=== PATIENT | female | born 1970 | race Caucasian/White ===

== ENCOUNTER 2021-06-20 11:28 | Emergency (ER) | payer OTHER, SELFPAY ==
[2021-06-20 11:38] VITALS: BP 172/79; PULSE 62; RESP 16; TEMP 36.3; O2SAT 100
--- NOTE | 2021-06-20 12:09 | ED.UPPEXIN ---
HPI - Extremity Injury (Upper) General Chief Complaint: Extremity Injury, Upper Stated Complaint: Right Arm Pain Time Seen by Provider: 06/20/21 11:57 Source: patient and RN notes reviewed Mode of arrival: ambulatory Limitations: no limitations History of Present Illness HPI narrative: Patient presents today complaining of pain to her right upper arm. 2 days ago she moved her arm and felt a pop and the pain is primarily in the axilla and upper humerus area. Denies numbness or tingling. She currently rates her pain 5/10 and has been taking Aleve with mild relief. Pain increases with movement. complaint: injury to: right and arm Related Data Home Medications Medication Instructions Recorded Confirmed oxybutynin chloride 5 mg PO DAILY 06/20/21 06/20/21 Allergies Allergy/AdvReac Type Severity Reaction Status Date / Time No Known Allergies Allergy Verified 06/20/21 12:02 Review of Systems Review of Systems: CONSTITUTIONAL: Denies body aches, fever, chills, or sweats. EYES: Denies visual changes, redness, or discharge. ENT: Denies rhinorrhea, congestion, sore throat, or otalgia. CARDIOVASCULAR: Denies chest pain, palpitations, or edema. RESPIRATORY: Denies cough or dyspnea. GASTROINTESTINAL: Denies abdominal pain, nausea, vomiting, or diarrhea. GENITOURINARY: Denies dysuria or hematuria. SKIN: Denies rash, itching, or wounds. MUSCULOSKELETAL: Denies back pain,myalgia.+ Right upper arm pain NEUROLOGIC: Denies headache, numbness, tingling, or weakness. PSYCH: Denies depression or anxiety. PMFSH Past Medical History Medical History (Updated 06/22/21 @ 10:16 by Cindy Wing, [facility], ) Overactive bladder Surgical History Surgical History (Updated 06/22/21 @ 10:16 by Cindy Wing, [facility], ) H/O tubal ligation Comments At time of signature, I have reviewed and agree with nursing past medical, surgical, social and family history unless otherwise noted. Please see nursing chart for further information. There is no relevant family history pertinent to the presenting complaint Exam Narrative: GENERAL: Well-appearing, well-nourished, and in no acute distress. HEAD: Normocephalic, atraumatic. EYES: EOMI. No redness or drainage. Conjunctivae normal. ENT: Mucous membranes pink and moist. NECK: Normal AROM. CHEST: No respiratory distress. EXTREMITIES: Right arm: No bony tenderness about the shoulder. Patient does have soft tissue tenderness to the axilla area extending to the tricep area. No edema, erythema, or ecchymosis noted. Pain increases with movement of the shoulder. Distal sensation intact. Capillary refill normal. Radial pulse normal. Full range of motion of the elbow and wrist without pain. SKIN: Warm, dry, no rash. Capillary refill normal. Normal skin turgor. NEURO: No focal deficits. Alert and oriented x3. Gait steady. PSYCH: Normal affect. No signs of depression or anxiety. Course Vital Signs Vital signs: Vital Signs Temperature 97.4 F L 06/20/21 11:38 Pulse Rate 62 06/20/21 11:38 Respiratory Rate 16 06/20/21 11:38 Blood Pressure 172/79 H 06/20/21 11:38 Pulse Oximetry 100 06/20/21 11:38 Temperature 97.4 F L 06/20/21 11:38 Pulse Rate 62 06/20/21 11:38 Respiratory Rate 16 06/20/21 11:38 Blood Pressure 172/79 H 06/20/21 11:38 Pulse Oximetry 100 06/20/21 11:38 Reviewed. Pt has been instructed to follow up with her PCP regarding her elevated blood pressure today. MDM - Extremity Injury (Upper) Differential Diagnosis Differential diagnosis: Likely other (Rotator cuff tendinitis, rotator cuff tear, rotator cuff strain) Critical Care Time Critical Care Time Critical Care Time: No Discharge Plan Discharge Clinical Impression: Injury of right shoulder Patient Disposition: Home, Self-Care Condition: Stable Instructions: Rotator Cuff Injury (ED) Additional Instructions: Take the diclofenac for pain and inflammation. Follow-up
== END 2021-06-20 12:15 | disposition home or self-care (01) ==
PROVIDERS: Emergency Provider Nurse Practitioner
DX: S49.91XA Unspecified injury of right shoulder and upper arm, initial encounter (principal); X58.XXXA Exposure to other specified factors, initial encounter
CPT/HCPCS: 99203; G0463

== ENCOUNTER 2023-09-02 08:34 | Emergency (ER) | payer OTHER, SELFPAY ==
[2023-09-02 08:44] VITALS: BP 158/93; PULSE 127; RESP 20; TEMP 39.4; O2SAT 94
--- NOTE | 2023-09-02 09:06 | ED.GENADULT ---
HPI - General Adult General Chief complaint: Upper Respiratory Infection Stated complaint: Dizzy, Cough Source: patient, RN notes reviewed and old records reviewed Mode of arrival: ambulatory Limitations: no limitations History of Present Illness HPI narrative: 53 year old female presents to [facility] for c/o cough, congestion, sore throat that started 3 days ago. Pt not taking anything for symptoms. Pt with noted fever today in clinic. MD complaint: cough, congestion,sore throat Onset (ago): day(s) (3) Related Data Home Medications Medication Instructions Recorded Confirmed oxybutynin chloride 5 mg tablet 5 mg PO DAILY 06/20/21 06/20/21 Allergies Allergy/AdvReac Type Severity Reaction Status Date / Time No Known Allergies Allergy Verified 09/02/23 09:16 Review of Systems Constitutional: Constitutional: Reports as per HPI, Reports body ache(s), Denies chills, Denies fatigue, Reports fever(s) and Denies headache(s) Eyes: Eyes: Reports no additional eye complaints and Denies blurry vision ENT: Reports as per HPI, Denies vertigo, Reports dizziness, Denies ear discharge, Denies otalgia, Denies facial pain, Reports headache(s), Reports nasal congestion, Denies nasal discharge, Reports sinus pain, Denies sinus pressure and Reports sore throat Cardiovascular: Cardiovascular: Reports no additional cardiovascular complaints, Denies chest pain, Denies chest pain at rest, Denies rapid heart rate and Denies dyspnea Respiratory: Respiratory: Reports as per HPI, Reports chest congestion, Reports cough, Denies pain on inspiration, Denies pain with cough and Denies dyspnea Gastrointestinal: Gastrointestinal: Denies abdominal pain, Denies diarrhea, Denies nausea and Denies vomiting Integumentary/Breasts: Skin/Breast: Denies rash Neurologic: Reports system reviewed and no additional complaints, except as documented, Denies vertigo, Denies dizziness and Denies headache(s) Endocrine: Endocrine: Denies fatigue PMFSH Past Medical History Medical History Overactive bladder Surgical History Surgical History H/O tubal ligation Comments At the time of my signature, I reviewed and agree with the nursing past medical, surgical, social, and family history. There is no relevant family history pertinent to the patient complaint. Exam Const: General: cooperative, healthy appearing, no acute distress and well nourished Nutritional Appearance: well nourished Orientation/consciousness: patient oriented x3 Limitations: no limitations HENMT: Head: normal to inspection and normocephalic Ears: external ears normal, TM's normal bilaterally, mastoids normal and Abnormal EAC present Face/Nose/Sinus: normal facial exam Face and sinus: normal facial exam Mouth: Yes Normal oral and palatal mucosa present, Yes oropharynx normal and Yes moist mucous membranes Throat: tonsils normal, uvula midline, posterior oropharynx abnormal erythema and no uvular edema Eyes: General: appearance normal, both eyes and all related structures Sclera: sclerae normal Pupils: Equal, round and reactive pupils present Resp: Effort & Inspection: normal respiratory effort, able to speak in complete sentences, no audible wheezes, no cough, no respiratory distress and no retractions Auscultation: clear to auscultation bilaterally, no crackles, no rales, no rhonchi and no wheezes Cardio: Rate: regular rate Rhythm: regular rhythm Skin: General skin exam: normal color and no rashes or lesions noted Neuro: General: patient oriented x3 Cranial nerves: Yes Equal, round and reactive pupils present Psych: Appearance: grossly normal Mental Status: mental status grossly normal Speech and movement: Normal speech and movement present Affect: normal affect Course Course Emergency Course: Patient is aware of diagnosis, understands and agrees to treatment tia
== END 2023-09-02 09:24 | disposition home or self-care (01) ==
PROVIDERS: Emergency Provider Registered Nurse
DX: J10.1 Influenza due to other identified influenza virus with other respiratory manifestations (principal); Z20.822 Contact with and (suspected) exposure to COVID-19
CPT/HCPCS: 87081; 87426; 87804; 87880; 99213; C9803; G0463

== ENCOUNTER 2023-12-21 18:55 | Emergency (ER) | payer OTHER, SELFPAY ==
[2023-12-21 18:58] VITALS: BP 174/81; PULSE 60; RESP 20; TEMP 36.4; O2SAT 98
--- NOTE | 2023-12-21 19:34 | ED.GENADULT ---
HPI - General Adult General Stated complaint: Poss UTI Source: patient Mode of arrival: ambulatory Limitations: no limitations History of Present Illness HPI narrative: Patient presents for evaluation of urinary symptoms for last 2 days. Symptoms include urinary frequency, urgency, incomplete emptying, dysuria, suprapubic pressure. No fever, chills, nausea, vomiting, low back pain. She tried taking Azo for her symptoms but symptoms persist. She has a history of overactive bladder. Related Data Home Medications Medication Instructions Recorded Confirmed oxybutynin chloride 5 mg tablet 5 mg PO DAILY 06/20/21 12/21/23 Allergies Allergy/AdvReac Type Severity Reaction Status Date / Time No Known Allergies Allergy Verified 12/21/23 19:06 Review of Systems Review of Systems: CONSTITUTIONAL: Denies fever, chills, or sweats. EYES: Denies visual changes, redness, or discharge. ENT: Denies rhinorrhea, congestion, sore throat, or otalgia. CARDIOVASCULAR: Denies chest pain, palpitations, or edema. RESPIRATORY: Denies cough or dyspnea. GASTROINTESTINAL: Denies abdominal pain, nausea, vomiting, or diarrhea. GENITOURINARY: Reports urinary frequency, urgency, incomplete emptying, dysuria and suprapubic pressure. SKIN: Denies rash or itching. MUSCULOSKELETAL: Denies back pain, joint pain, or myalgia. NEUROLOGIC: Denies headache, numbness, dizziness, or weakness. PSYCHIATRIC: Denies anxiety or depression. PMFSH Past Medical History Medical History Overactive bladder Surgical History Surgical History H/O tubal ligation Family History Family History Mother Family history non-contributory Social History Social History Smoking status: Former smoker Substance use: never Gender identity (if verbalized by the patient): Female Spiritual care concerns: No Exam Narrative: GENERAL: Well-appearing, well-nourished, and in no acute distress. HEAD: Normocephalic, atraumatic. EYES: PERRLA and EOMI. ENT: Nares clear, no rhinorrhea or epistaxis. Mucous membranes moist. Oropharynx without tonsillar hypertrophy exudate or other lesions. Bilateral TMs pearly matute nonbulging NECK: Supple. No adenopathy or masses. No carotid bruits or JVD CHEST: Clear to auscultation. No respiratory distress. No wheezes rales or rhonchi HEART: Regular rate and rhythm. No murmur heard. Normal peripheral pulses. ABDOMEN: Soft, nontender, nondistended, normal active bowel sounds. EXTREMITIES: Normal range of motion. No edema. SKIN: Warm, dry, no rash. NEURO: No focal deficits. Alert and oriented x3. PSYCH: Normal mood and affect. Course Course Emergency Course: This is a 53-year-old female who presented for evaluation of urinary symptoms. Urine here is nitrite positive. Will send urine for culture. Start macrobid. Increase hydration. Pyridium for dysuria. Follow up with PCP. Go to the ER for worsening symptoms. Pt in agreement with plan of care. Level of Care: Express Care Visit Vital Signs Vital signs: Vital Signs Temperature 36.4 C 12/21/23 18:58 Pulse Rate 60 12/21/23 18:58 Respiratory Rate 20 12/21/23 18:58 Blood Pressure 174/81 H 12/21/23 18:58 Pulse Oximetry 98 12/21/23 18:58 Oxygen Delivery Room Air 12/21/23 18:58 Temperature 36.4 C 12/21/23 18:58 Pulse Rate 60 12/21/23 18:58 Respiratory Rate 20 12/21/23 18:58 Blood Pressure 174/81 H 12/21/23 18:58 Pulse Oximetry 98 12/21/23 18:58 Oxygen Delivery Room Air 12/21/23 18:58 Medical Decision Making Vital Signs Vital Signs: Vital Signs Temperature 36.4 C 12/21/23 18:58 Pulse Rate 60 12/21/23 18:58 Respiratory Rate 20 12/21/23 18:58 Blood Pressure 174/81 H 04
== END 2023-12-21 19:20 | disposition home or self-care (01) ==
PROVIDERS: Emergency Provider Nurse Practitioner
DX: N39.0 Urinary tract infection, site not specified (principal); B96.20 Unspecified Escherichia coli [E. coli] as the cause of diseases classified elsewhere; Z87.891 Personal history of nicotine dependence; N32.81 Overactive bladder
CPT/HCPCS: 81003; 87077; 87086; 87186; 99213; G0463

== ENCOUNTER 2024-04-13 10:01 | Emergency (ER) | payer OTHER, SELFPAY ==
[2024-04-13 10:06] VITALS: BP 188/83; PULSE 64; RESP 20; TEMP 36.9; O2SAT 97
--- NOTE | 2024-04-13 10:09 | ED.GENADULT ---
HPI - General Adult General Chief complaint: Urogenital-Female Stated complaint: Urianry Problem Time Seen by Provider: 04/13/24 10:09 Source: patient, RN notes reviewed and old records reviewed Mode of arrival: ambulatory Limitations: no limitations History of Present Illness HPI narrative: 53-year-old female to Express Care for complaint urinary dribbling, frequency, retention, dysuria for 1 week. Patient states that symptoms were initially intermittent and are now more frequent and increased. Patient denies abdominal pain, back pain, fever, nausea, vomiting, bowel changes, allergies. Patient has not attempted to treat at home. Patient reports history of chronic urinary tract infections with most recent being in July of 2023. Patient able to tolerate fluids by mouth. Respirations even and nonlabored. Patient in no acute distress. Related Data Home Medications Medication Instructions Recorded Confirmed oxybutynin chloride 5 mg tablet 5 mg PO DAILY 06/20/21 04/13/24 Allergies Allergy/AdvReac Type Severity Reaction Status Date / Time No Known Allergies Allergy Verified 04/13/24 10:09 Review of Systems Review of Systems: All systems reviewed & are unremarkable except as noted in HPI and below Constitutional: Constitutional: Reports no additional constitutional complaints Eyes: Eyes: Reports no additional eye complaints ENT: Reports system reviewed and no additional complaints, except as documented Cardiovascular: Cardiovascular: Reports no additional cardiovascular complaints, Denies chest pain and Denies dyspnea Respiratory: Respiratory: Reports no additional respiratory complaints, Denies cough and Denies dyspnea Gastrointestinal: Gastrointestinal: Reports as per HPI, Denies abdominal pain, Denies diarrhea, Denies nausea and Denies vomiting Genitourinary: Genitourinary: Reports as per HPI, Denies hematuria, Reports urinary frequency, Reports post void dribbling, Reports nocturia, Denies genital pruritis, Reports dysuria, Denies pelvic pain, Denies flank pain, Reports urinary incontinence, Reports urinary hesitancy, Reports urinary urgency, Denies vaginal discharge and Denies vaginal odor Musculoskeletal: Musculoskeletal: Reports no additional musculoskeletal complaints Neurologic: Reports system reviewed and no additional complaints, except as documented Psychiatric: Psychiatric: Reports no additional psychiatric complaints PMFSH Past Medical History Medical History Overactive bladder Surgical History Surgical History H/O tubal ligation Family History Family History Mother Family history non-contributory Social History Social History Smoking status: Former smoker Substance use: never Gender identity (if verbalized by the patient): Female Spiritual care concerns: No Comments At the time of my signature, I reviewed and agree with the nursing past medical, surgical, social, and family history. There is no relevant family history pertinent to the patient complaint. Exam Const: General: cooperative, healthy appearing, comfortable, no acute distress, alert and well nourished Nutritional Appearance: well nourished Orientation/consciousness: patient oriented x3 Limitations: no limitations HENMT: Head: normal to inspection Ears: external ears normal Face/Nose/Sinus: Normal external nose present, Normal nares present, normal facial exam, No erythema and No edema Face and sinus: normal facial exam, no erythema and no edema Mouth: Yes Normal oral and palatal mucosa present Eyes: General: appearance normal, both eyes and all related structures Neck: Neck: normal visual inspection, full ROM and no meningeal signs Lymphatic: no lymphadenopathy note
[2024-04-13 10:17] VITALS: BP 188/83; PULSE 64; RESP 20; TEMP 36.9; O2SAT 97
[2024-04-13 10:41] LABS: EDUAAPPEAR Cloudy; EDUABILI Negative; EDUABLOOD Trace; EDUACOLOR1 Yellow; EDUAGLUCOSE Negative; EDUAKETONE Negative; EDUALEUKO 1+; EDUANITRATE Negative; EDUAPH 6.5; EDUAPROTEIN 1+; EDUASPGRAVITY 1.025; EDUAUROBILI 0.2
[2024-04-13 10:45] VITALS: BP 160/80
== END 2024-04-13 10:45 | disposition home or self-care (01) ==
PROVIDERS: Emergency Provider Nurse Practitioner Family
DX: N39.0 Urinary tract infection, site not specified (principal); Z87.891 Personal history of nicotine dependence; N32.81 Overactive bladder
CPT/HCPCS: 81003; 87086; 87088; 99213; G0463

== ENCOUNTER 2025-01-22 08:57 | Emergency (ER) | payer OTHER, SELFPAY ==
--- OUTSIDE RECORDS SUMMARY | 2025-01-22 09:01 | XMS_ITS | Clinical Summary ---
Author Organization [facility] Address [address] [place] [id number] Care Team Providers Care Cra Name Role Phone Unavailable Primary Care Provider Unavailabl e Social History Tobacco Use Types Packs/Day Years Used Date Smoking Tobacco: Never Assessed Comments Unknown Sex and Gender Information Value Date Recorded Sex Assigned at Not on file Legal Sex Female 7:49 PM CDT Gender Identity Not on file Sexual Orientation Not on file Plan of Treatment Health Maintenance Due Date Last Done Comments Cervical Cancer Screening Pa p Smear (Age 30 to 64) Every 3 Years 1970 Colorectal Cancer Screening Colonoscopy (10 Years) 1970 Annual Physical 1973 Hepatitis C 1988 DTaP, Tdap and Td Vaccines ( 1 - Tdap) 1989 Hepatitis B Vaccines (1 of 3 - 19+ 3-dose series) 1989 Cervical Cancer Screening Pa p with HPV Testing (Age 30 to 64) Every 5 Years 2000 Cervical Cancer Screening with HPV 2000 Mammogram Screening 2010 Pneumococcal Vaccine: 50+ Ye ars (1 of 1 - PCV) 2020 Zoster Vaccines (1 of 2) 2020 COVID-19 Vaccine ( - 2023-2 5 season) 2024 Meningococcal B Vaccine Aged Out No l onger eligible based on patient's age to complete this topic Meningococcal Vaccine Aged Out No christie dieudonne eligible based on patient's age to complete this topic RSV Immunizations Under 20 Months Aged Out No longer eligible based on patient's age to complete this topic
--- OUTSIDE RECORDS SUMMARY | 2025-01-22 09:01 | XMS_ITS | Referral Summary ---
Author Organization [facility] Address [address] [place] [address] Care Team Providers Care Call Center Recruiter Name Role Phone No, Physician Primary Care Provider [phone] Miscellaneous, Not In File Unavailable Unava Don Pro MD Unavailable [phone] Encounters Date Type Department Care Team Description 11/17/[address] [facility] [address] [place] [id number] Janneth Vela 11/13/2024 11:20 AM [employer] WORK[employer] Office Visit [facility] [id number] [place] [address] Medical Office Building [address] [place] [address] Paulina Barbosa, ABEL Mixed incontinence urge and stress (Primary Dx); OAB (overactive bladder) 11/09/2024 Orders Only [facility] [address] [place] [id number] Paulina Barbosa, ABEL 10/28/[address] [facility] [address] [place] [id number] Janneth Vela from Last 3 Months Allergies No known active allergies Medications acetaminophen (TYLENOL) 500 mg tablet Take 1,000 mg by mouth every 6 (six) hours as needed for pain Active cyanocobalamin (Vitamin B-12) 1,000 mcg sublingual tablet Take 1,000 mcg by mouth daily Active oxyBUTYnin (DITROPAN) 5 mg tabletIndication s:OAB (overactive bladder) Take 1 tablet (5 mg total) by mouth 2 (two) times a day 180 tablet 3 11/13/2024 Active Active Problems Problem Noted Date Diagnosed Date History of biliary duct stent placement 08/03/20 Overview (08/03/2022): Added automatically from request for surgery [id number] GI bleed 07/25/2022 Acute blood loss anemia 07/25/2022 Thrombocytopenia 07/25/2022 S/P cholecystectomy 07/23/2022 Kidney lesion 07/23/2022 Abdominal pain 07/22/2022 Elevated transaminase level 07/22/2022 Overview (07/24/2022): Added automatically from request for surgery [id number] Choledocholithiasis 07/22/2022 Overview (07/24/2022): Added automatically from request for surgery [id number] Calculus of gallbladder and bile duct without cholecystitis or obstruction 06/25/2022 Assessment & Plan (07/12/2022 9:19 AM CDT): Diet as tolerated. Okay to return to work with light duty. No heavy lifting greater than 20 lb for 4 weeks. No submerging incisions for 4 weeks. Please call for any further questions or concerns. Assessment & Plan (06/25/2022 12:52 PM CDT): Abnormal imaging with one known episode with typical symptoms. Surgical vs non-surgical therapy was discussed. The procedure along with the risks, benefits, and post operative period were discussed with the patient and her significant other. Educational packets were also provided to the patient for further reading. Patient will let us know which treatment she would like to pursue. OAB (overactive bladder) 11/10/2021 Hemorrhage following endosco pic retrograde cholangiopancreatography (ERCP) Acute blood loss anemia (ABLA) Social History Tobacco Use Types Packs/Day Years Used Date Smoking Tobacco: Former Smokeless Tobacco: Never Tobacco Cessation:Counseling Given: Not Answered Alcohol Use Standard Drinks/Week Comments No 0 (1 standard drink = 0.6 oz pur e alcohol) AUDIT-C Answer Date Recorded Q1: How often do you have a drink containing alcohol? Never 08/24/2022 Q2: How many drinks containi ng alcohol do you have on a typical day when you are drinking? Patient does not drink Q3: How often do you have si x or more drinks on one occasion? Never 08/24/2022 Comments No Sex and Gender Information Value Date Recorded Sex Assigned at Not on file Legal Sex Female 7:28 PM [employer] Gender Identity Not on file Sexual Orientation Not on file Last Filed Vital Signs Vital Sign Reading Time Taken Comments Blood Pressure 183/96 08/27/2022 10:22 AM [employer] WORK[employer] Pulse 65 08/27/2022 10:22 AM [employer] WORK[employer] Temperature 36.7 C (98 F) 11/13/2023 10:50 AM [employer] WORKER Respiratory Rate 16 08/27/2022 10:22 AM [employer]CE D[employer] WORKER Oxygen Saturation 100% 08/27/2022 10:22 AM [employer] WORKER Inhaled Oxygen Concentration - - Weight 69.4 kg (153 lb) 08/27/2022 8:03 AM [employer] WORK[employer] Height 144.8 cm (4' 9 ) 08/27/2022 8:03 AM [employer] WORKER Body Mass Index 33.11 08/27/2022 8:03 AM [employer]CE [employer] WORKER Plan of Treatment Not on file Medical Devices Implanted Type Area Savings Counselor Device Identifier Shelf Expiration Date Model / Serial / Lot [employer] Symmetry Vesolock Large Clip Internal [id number] - Sn/A - [id number] Implanted:Qty: 1 on 07/02/2022 by Serge Andrade MD at [facility] N/A: Abdomen [employer] [id number] / N/A / Explanted Type Area Savings Counselor Device Identifier Shelf Expiration Date Model / Serial / Lot [employer] Advanix; Naviflex Od10 Fr L5 Cm Preload; Radiopaque; Rapid Exchan [id number] - [id number] Implanted:Qty: 1 on 07/24/2022 by Yissel Nicole MD at [facility] Explanted:Qty: 1 on 07/26/2022 by Don Reyna MD at [facility] Stent [employer] 02/14/2023 [id number] / / [id number] Conmed Luis Viabil 8mm X 6cm Longwire [id number] - [id number] - [id number] Implanted:Qty: 1 on 07/26/2022 by Don Reyna MD at [facility] Explanted:Qty: 1 on 08/27/2022 by Don Reyna MD at [facility] Stent N/A: Bile Duct Con[employer] Luis 12/11/2023 [id number] / [id number] / Procedures Procedure Name Priority Date/Time Associated Diagnosis Comments MEASURE POST VOID RESIDUAL Routine 11/13/2024 11:19 AM [employer] WORKER OAB (overactive bladder) from Last 3 Months Results * Measure post void residual (11/13/2024 11:19 AM P[employer]CE D[employer] WORKER) Maria Teresa Manasa Argueta - 11/13/2024 11:19 AM [employer] WORKER Measurement of post-voiding residual urine and/or bladder capacity by ultrasound, non-imaging. PVR = 70mL us Paulina Barbosa [employer] [facility] Final Res ult from Last 3 Months Insurance [facility] Advance Directives For more information, please contact: [phone] * Full Code (Latest Code Status on File) Date Activated Date Inactivated Comments 08/27/2022 7:58 AM 08/27/2022 2:49 PM * Full Code Date Activated Date Inactivated Comments 07/25/2022 10:56 PM 07/27/2022 6:33 PM * Full Code Date Activated Date Inactivated Comments 07/24/2022 2:54 PM 07/25/2022 9:40 PM * Full Code Date Activated Date Inactivated Comments 07/23/2022 8:59 AM 07/24/2022 2:54 PM Care Teams Call Center Recruiter Relationship Specialty Start Date End Date No, Physician PCP - General 07/22/22 Miscellaneous, Not In File 07/27/22 Don Reyna MD [address] [place] [address] Consulting Physician Gastroenterology 07/27/22
--- OUTSIDE RECORDS SUMMARY | 2025-01-22 09:01 | XMS_ITS | Clinical Summary ---
Author Organization [facility] Address [address] [place] [address] Care Team Providers Care Certified Ophthalmic Medical Technician Name Role Phone No, Physician Primary Care Provider [phone] Miscellaneous, Not In File Unavailable Unava Don Pro MD Unavailable [phone] Allergies No known active allergies Medications acetaminophen [...] (08/03/2022): Added automatically from request for surgery [id number] GI bleed 07/25/2022 Acute blood loss anemia 07/25/2022 Thrombocytopenia 07/25/2022 S/P cholecystectomy 07/23/2022 Kidney lesion 07/23/2022 Abdominal pain 07/22/2022 Elevated transaminase level 07/22/2022 Overview (07/24/2022): Added automatically from request for surgery [id number] Choledocholithiasis 07/22/2022 Overview (07/24/2022): Added automatically from request for surgery [id number] Calculus of gallbladder and bile duct without [...] cholangiopancreatography (ERCP) Acute blood loss anemia (ABLA) Encounters Date Type Department Care Team Description 11/17/2024 Documentation [facility] [address] [place] [id number] Janneth Vela 11/13/2024 11:20 AM STORE ASSISTANT Office Visit [facility]) - [facility] U[facility] [id number] [place] [address] Medical Office Building [address] [place] [id number] Paulina Barbosa, ABEL Mixed incontinence urge and stress (Primary Dx); OAB (overactive bladder) 11/09/2024 Orders Only [facility] [address] [place] [id number] Paulina Barbosa, WARES SORTER 10/28/2024 Documentation [facility] [address] [place] [id number] Janneth Vela from Last 3 Months Surgical History Surgery Date Site/Laterality Comments HEART SURGERY repair hole in the heart TUBAL LIGATION Medical History Medical History Date Comments Arthritis Seizures (HCC) as a child Family History Medical History Relation Name Comments No Known Problems Brother Lymphoma Father Dementia Mother No Known Problems Sister Relation Name Status Comments Brother Alive Father Mother Sister Alive Social History Tobacco Use Types Packs/Day Years [...] on file Legal Sex Female 7:28 PM STORE ASSISTANT Gender Identity Not on file Sexual Orientation Not on file Obstetrics History Last Filed Vital Signs Vital Sign Reading Time Taken Comments Blood Pressure 183/96 08/27/2022 10:22 AM STORE ASSISTANT Pulse 65 08/27/2022 10:22 AM STORE ASSISTANT Temperature 36.7 C (98 F) 11/13/2023 10:50 AM STORE ASSISTANT Respiratory Rate 16 08/27/2022 10:22 AM STORE ASSISTANT Oxygen Saturation 100% 08/27/2022 10:22 AM STORE ASSISTANT Inhaled Oxygen Concentration - - Weight 69.4 kg (153 lb) 08/27/2022 8:03 AM STORE ASSISTANT Height 144.8 cm (4' 9 ) 08/27/2022 8:03 AM STORE ASSISTANT Body Mass Index 33.11 08/27/2022 8:03 AM STORE ASSISTANT Plan of Treatment Health Maintenance Due Date Last Done Comments Breast Cancer Screening-Mammogram 1970 Cervical Cancer Screening 1970 Colon Cancer Screening-Colonoscopy 1970 Depression Screening 1970 Hepatitis C Screening 1970 DTaP/Tdap/Td Vaccine (1 - Tdap) 1981 Hepatitis B Screening 1988 Regular Well Visit/Exam 18-64 1988 Zoster Vaccine (1 of 2) 2020 Influenza Vaccine (Season Ended) 2025 Pneumococcal vaccine <65 Aged Out No longer eligible based on patient's age to complete this topic Medical Devices Implanted Type Area Property Analyst Device Identifier Shelf Expiration Date Model / Serial / Lot [employer] Symmetry Vesolock Large Clip Internal [id number] - Sn/A - [id number] Implanted:Qty: 1 on 07/02/2022 by Serge Andrade MD at [facility] N/A: Abdomen [employer] [id number] / N/A / Explanted Type Area Property Analyst Device Identifier Shelf Expiration Date Model / Serial / Lot [employer] Advanix; Naviflex Od10 Fr L5 Cm Preload; Radiopaque; Rapid Exchan [id number] - [id number] Implanted:Qty: 1 on 07/24/2022 by Yissel Nicole MD at [facility] Explanted:Qty: 1 on 07/26/2022 by Don Reyna MD at [facility] Stent [employer] 02/14/2023 [id number] / / [id number] Conmed Luis Viabil 8mm X 6cm Longwire [id number] - [id number] - [id number] Implanted:Qty: 1 on 07/26/2022 by Don Reyna MD at [facility] Explanted:Qty: 1 on 08/27/2022 by Don Reyna MD at [facility] Stent N/A: Bile Duct Conmed Luis 12/11/2023 [id number] / [id number] / Procedures Procedure Name Priority Date/Time Associated Diagnosis Comments MEASURE POST VOID RESIDUAL Routine 11/13/2024 11:19 AM STORE ASSISTANT OAB (overactive bladder) from Last 3 Months Results * Measure post void residual (11/13/2024 11:19 AM STORE ASSISTANT) Maria Teresa Manasa Argueta - 11/13/2024 11:19 AM STORE ASSISTANT Measurement of post-voiding residual urine and/or bladder capacity by ultrasound, non-imaging. PVR = 70mL us Paulina Barbosa WARES SORTER NURSING ASSESSMENTS Final Res ult from Last 3 Months Insurance [facility] Advance Directives For more information, please contact: [phone] * Full Code (Latest Code Status on File) Date Activated Date Inactivated Comments 08/27/2022 7:58 AM 08/27/2022 2:49 PM * Full Code Date Activated Date Inactivated Comments 07/25/2022 10:56 PM 07/27/2022 6:33 PM * Full Code Date Activated Date Inactivated Comments 07/24/2022 2:54 PM 07/25/2022 9:40 PM * Full Code Date Activated Date Inactivated Comments 07/23/2022 8:59 AM 07/24/2022 2:54 PM Care Teams Certified Ophthalmic Medical Technician Relationship Specialty Start Date End Date No, Physician PCP - General 07/22/22 Miscellaneous, Not In File 07/27/22 Don Reyna MD [address] [place] [address] Consulting Physician Gastroenterology 07/27/22
[2025-01-22 09:02] VITALS: BP 177/95; PULSE 94; RESP 18; TEMP 37.1; O2SAT 96
[2025-01-22 09:24] LABS: EDCOVIDSCREEN Positive (Negative); EDINFLUASCREEN Negative (Negative); EDINFLUBSCREEN Negative (Negative)
--- NOTE | 2025-01-22 09:24 | ED.URI ---
HPI - URI/Sore Throat General Chief Complaint: Upper Respiratory Infection Stated Complaint: runny nose/congestion Time Seen by Provider: 01/22/25 09:25 Source: patient and RN notes reviewed Mode of arrival: ambulatory Limitations: no limitations History of Present Illness HPI Narrative: 54-year-old female presents with concern for 1-2 days of headache, body aches, nasal congestion, cough, sweats. Reports she has started taking Excedrin relief. MD elicited complaint: cough Related Data Home Medications ?Medication ?Instructions ?Recorded ?Confirmed ?Last Taken ?Type oxybutynin chloride 5 mg tablet 5 mg PO DAILY 06/20/21 04/13/24 Unknown History Allergies Allergy/AdvReac Type Severity Reaction Status Date / Time No Known Allergies Allergy Verified 01/22/25 09:11 Review of Systems Review of Systems: CONSTITUTIONAL: Reports malaise, sweats EYES: Denies visual changes, redness, or discharge. ENT: Reports rhinorrhea, congestion CARDIOVASCULAR: Denies chest pain, palpitations, or edema. RESPIRATORY: Reports cough. Denies dyspnea. GASTROINTESTINAL: Denies abdominal pain, nausea, vomiting, diarrhea SKIN: Denies rash or itching. MUSCULOSKELETAL: Reports myalgia. NEUROLOGIC: Reports headache. All systems reviewed & are unremarkable except as noted in HPI and below PMFSH Past Medical History Medical History Overactive bladder Surgical History Surgical History H/O tubal ligation Family History Family History Mother Family history non-contributory Social History Social History Smoking status: Former smoker Substance use: never Gender identity (if verbalized by the patient): Female Spiritual care concerns: No Comments At time of signature, agree with nursing past medical, surgical, social and family history. There is no relevant family history pertinent to the presenting complaint Exam Narrative: GENERAL: Well-appearing, well-nourished, and in no acute distress. HEAD: Normocephalic EYES: PERRLA, conjunctivae clear ENT: Nares clear. Mucous membranes moist. TM pearly matute with sharp light reflex bilaterally; no tragal tenderness. Oropharynx not erythematous without lesions. Tonsils not enlarged and without exudate, no drooling, no hoarseness, no trismus, uvula midline. NECK: Supple. No lymphadenopathy CHEST: Clear to auscultation, breath sounds equal. No wheezing, rhonchi, rales, or stridor. No respiratory distress, speaks in full sentences. HEART: Regular rate and rhythm. No murmur heard. SKIN: Warm, dry, no rash. NEURO: Alert and oriented x3. PSYCH: Normal mood and affect Course Course Emergency Course: Patient is aware of diagnosis, understands and agrees to treatment plan. Anticipatory guidance given. Patient agrees to follow-up as directed and is aware of reasons to seek care at the emergency department. Portions of this record may have been created with voice recognition software Level of Care: Express Care Visit Vital Signs Vital signs: Vital Signs Temperature 98.7 F 01/22/25 09:02 Pulse Rate 94 01/22/25 09:02 Respiratory Rate 18 01/22/25 09:02 Blood Pressure 177/95 H 01/22/25 09:02 Pulse Oximetry 96 01/22/25 09:02 Oxygen Delivery Room Air 01/22/25 09:02 Temperature 98.7 F 01/22/25 09:02 Pulse Rate 94 01/22/25 09:02 Respiratory Rate 18 01/22/25 09:02 Blood Pressure 177/95 H 01/22/25 09:02 Pulse Oximetry 96 01/22/25 09:02 Oxygen Delivery Room Air 01/22/25 09:02 Reviewed. MDM - URI/Sore Throat MDM Narrative Medical decision making narrative: Differential diagnosis considered: Kaminski virus, strep pharyngitis, allergic rhinitis, upper respiratory tract infection, sinusitis, rhinosinusitis, nasopharyngitis. viral pharyngitis, otitis media, otitis externa, pneumonia, bronchitis, viral cough syndrome, viral syndrome, and influenza. Exam findings show no acute concerns or changes; patient is non-toxic appearing and is in no distress. Patient is appropriate for outpatient treatment and follow-up. Lab Data Attestation: I reviewed the patient's lab results. Labs: Lab Results 01/22/25 Range/Units 09:22 POC Influenza A Ag Negative (Negative) POC Influenza B Ag Negative (Negative) POC SARS CoV-2 Ag Positive (Negative) Critical Care Time Critical Care Time Critical Care Time: No Discharge Plan Discharge Clinical Impression: COVID Patient Disposition: Home Condition: Stable Instructions: How to Recover from COVID-19 at Home (ED) Additional Instructions: Your rapid COVID test is positive. COVID is a virus, antibiotics are not effective against viruses. Your body has to kill viruses. ? Stay home when you are sick, except to get medical care. ? Stay home until your symptoms are resolving and you haven't had a fever for 24 hours. ? If you are self isolating at home where others live, use a separate room and bathroom for sick household members (if possible). Clean any shared rooms as needed, to avoid transmitting the virus. ? Wash your hands often with soap and water for at least 20 seconds, especially after blowing your nose, coughing, or sneezing; going to the bathroom; and before eating or preparing food. ? If soap and water are not available, use an alcohol-based hand hydroelectric plant operator with at least 60% alcohol. ? Have a supply of clean, disposable face masks. Everyone, no matter their COVID diagnosis, should wear face masks while in the home. - Over the counter medications such as Tylenol every 4 hours, ibuprofen every 6 hours (you can alternate these for maximum effect), Mucinex DM for cough, and psuedoephedrine (you must ask the pharmacist for this) can help relieve symptoms while your body fights off the virus. Watch for symptoms and learn when to seek emergency medical attention. If someone is showing any of these signs, seek emergency medical care immediately: ? Trouble breathing ? Persistent chest pain/pressure ? Confusion ? Inability to wake or stay awake ? Bluish lips or face Call 911 or call ahead to your local emergency room: Notify the trench shovel operator that you are seeking care for someone who has or may have COVID Patient Language: Setswana Prescriptions: New pseudoephedrine HCl [12 Hour Decongestant] 120 mg tablet extended release 120 mg PO Q12H PRN (Reason: nasal congestion) Qty: 20 0RF promethazine-DM 6.25-15 mg/5 mL syrup 5 ml PO Q4-6H PRN (Reason: cough) Qty: 120 0RF No Action oxybutynin chloride 5 mg tablet 5 mg PO DAILY Follow-up/Referrals: PHYSICIAN,SIEVE GRADER TENDER [Primary Care Provider] - Time of Disposition: 09:30
== END 2025-01-22 09:36 | disposition home or self-care (01) ==
PROVIDERS: Emergency Provider Nurse Practitioner
DX: U07.1 COVID-19 (principal); Z87.891 Personal history of nicotine dependence; N32.81 Overactive bladder
CPT/HCPCS: 87426; 87804; 99213; G0463